=== PATIENT | male | born 1995 | race African-American/Black ===

== ENCOUNTER 2019-08-02 19:51 | Emergency (ER) | payer OTHER ==
[~2019-08-02] VITALS: Ht 177.8 cm; Wt 100.0 kg
[2019-08-02] MEDS ORDERED: PENICILLIN V POTASSIUM 500 MG TAB PO ONE (20:30)
[2019-08-02] MEDS ORDERED: IBUPROFEN 600 MG TAB PO ONE (20:30)
[2019-08-02 20:56] LABS: INFLUENZA A AMPLIFICATION POSITIVE (NEGATIVE); INFLUENZA B AMPLIFICATION NEGATIVE (NEGATIVE)
[2019-08-02] MEDS ORDERED: PENI500T PO (21:00)
[2019-08-02 21:09] VITALS: BP 137/77
== END 2019-08-02 21:19 | disposition home or self-care (01) ==
LOC: M ED 19:51
DX: J09.X2 Influenza due to identified novel influenza A virus with other respiratory manifestations (principal)